=== PATIENT | male | born 1975 | race Two or more races ===

== ENCOUNTER 2023-10-29 11:49 | Emergency (ER) | payer MEDICAID ==
[~2023-10-29] VITALS: Ht 175.3 cm; Wt 78.0 kg
[2023-10-29 11:52] VITALS: O2SAT 99
[2023-10-29 12:30] VITALS: BP 147/94; PULSE 80; RESP 18; TEMP 98.3
[2023-10-29 12:57] LABS: BASOPHILS % 0.6 % (0.0-2.0); EOSINOPHILS % 1.8 % (0.0-5.0); HEMATOCRIT. 28.5 % (42.0-52.0); HEMOGLOBIN. 8.1 g/dL (14.0-18.0); LYMPHOCYTES % 12.3 % (20.0-50.0); MEAN CORPUSCULAR HEMOGLOBIN 18.2 pg (28.0-32.0); MEAN CORPUSCULAR HGB CONC 28.6 g/dL (31.0-37.0); MEAN CORPUSCULAR VOLUME 63.6 fL (80.0-94.0); MEAN PLATELET VOLUME 8.2 fl (7.4-10.4); NEUTROPHILS % 78.3 % (40.0-76.0); PLATELET 553 x1000/uL (130-400); RED BLOOD CELL COUNT 4.47 mill/uL (4.7-6.1); RED CELL DISTRIBUTION WIDTH 27.8 % (11.6-14.6); WHITE BLOOD COUNT 8.7 x1000/uL (4.5-11.0)
[2023-10-29 12:59] LABS: ADD RBC MORPHOLOGY YES; DIFFERENTIAL COMMENT 1
[2023-10-29 13:10] LABS: AMMONIA < 10 uMol/L (<32)
[2023-10-29 13:11] LABS: ALANINE AMINOTRANSFERASE 8 IU/L (10-49); ALBUMIN 4.2 g/dL (3.2-4.8); ASPARTATE AMINOTRANSFERASE 11 IU/L (<34); BILIRUBIN TOTAL 0.3 mg/dL (0.1-1.0); CALCIUM 9.2 mg/dL (8.7-10.4); CARBON DIOXIDE 29 mEq/L (21-32); CHLORIDE 105 mEq/L (98-107); CREATINE KINASE 219 IU/L (46-171); CREATININE 0.7 mg/dL (0.6-1.3); GLUCOSE 136 mg/dL (70-105); POTASSIUM 3.6 mEq/L (3.5-5.1); PROTEIN TOTAL 7.5 g/dL (6.0-8.3); SODIUM 139 mEq/L (136-145); UREA NITROGEN BLOOD 12 mg/dL (9-23)
[2023-10-29 13:13] LABS: ETHANOL BLOOD < 10 mg/dL (<10); TROPONIN I HIGH SENSITIVITY < 4 ng/L (3.0-53)
[2023-10-29 13:32] LABS: ANISOCYTOSIS 4+; MICROCYTOSIS 4+; OVALOCYTES 1+; PLATELET ESTIMATE INCREASED
[2023-10-29 13:33] LABS: HYPOCHROMASIA 1+
[2023-10-29] MEDS ORDERED: SODIUM CHLORIDE 0.9% 1,000 ML IV ONE (14:00)
[2023-10-29 14:55] LABS: TROPONIN I HIGH SENSITIVITY < 4 ng/L (3.0-53)
[2023-11-02] MEDS ORDERED: KEPP500 MT (08:02)
[2023-11-02] MEDS ORDERED: ASPI-1406 MT (08:02)
[2023-11-02] MEDS ORDERED: ATOR10TA MT (08:02)
== END 2023-10-29 17:00 | disposition left against medical advice (07) ==
LOC: ER 11:49 → EDBEDREQ 14:07 → EDBEDREQTM 14:07 → ER 17:00 → CANBEDREQ 17:56
DX: R41.82 Altered mental status, unspecified (principal); I10 Essential (primary) hypertension; Z86.73 Personal history of transient ischemic attack (TIA), and cerebral infarction without residual deficits
CPT/HCPCS: 80053; 80320; 82140; 82550; 83605; 85025; 86850; 86900; 86901; 84484; 36415; 71045; 70450; 93005; 99285; J7030; Z7610; G0480